=== PATIENT | female | born 1980 | race Caucasian/White ===

== ENCOUNTER 2017-12-28 09:00 | Inpatient (IN) | payer OTHER ==
[2017-12-28] MEDS ORDERED: ELECTROLYTE-148 SOLN 500 ML IV ONE (10:30)
[2017-12-28] MEDS ORDERED: ELECTROLYTE-148 SOLN 1,000 ML IV SCH ×3 (11:00→14:30)
[2017-12-28 11:10] VITALS: BMI 36.0
--- NOTE | 2017-12-28 11:24 | HP ---
Past Medical History - Primary Care Physician PCP:: Isrrael Tavares - Admission Chief Complaint: 37yo P1 with at EGA 39w 1d admitted for repeat section. History of Present Illness: AMA Prior C/S Vaginal GBS Negative. cf DNA screen ([id number]) suggest of 45X_, pt declined Amnio. History Source: Patient, Medical Record Limitations to Obtaining History: No Limitations - Past Medical History PROGRAM SUPPORT SPECIALIST: No: Alzheimer's, CVA, Dementia, Migraine, Multiple Sclerosis, Peripheral Neuropathy, Parkinson's, Seizure, Syncope, TIA, Vertigo, Other Cardiovascular: Yes: Other (Tachycardia- evaluated by profile mill operator tape control, no pathology found) Pulmonary: No: Asthma, Bronchitis, Cancer, COPD, O2 Dependent, Pneumonia, Previously Intubated, Pulmonary Embolus, Pulmonary Fibrosis, Sleep Apnea, Other Gastrointestinal: No: Ascites, Cancer, Constipation, Crohn's Disease, Diverticulitis, Diverticulosis, Esophageal Varices, Gastritis, GERD, GI Bleed, Hemorrhoids, Hiatal Hernia, Inflamatory Bowel Disease, Irritable Bowel Disease, Pancreatitis, Peptic Ulcer Disease, Ulcerative Colitis, Other Hepatobiliary: No: Cirrhosis, Cholelithiasis, Cholecystitis, Choledocholithiasis , Hepatitis A, Hepatitis B, Hepatitis C, Other Renal/: No: Renal Failure, Renal Inusuff, BPH, Cancer, Hematuria, Hemodialysis , Neurogenic Bladder, Renal Calculi, UTI, Other Reproductive: No: Ectopic , Endometriosis, Fibroids, PID, Polycystic Ovary Syndrome, Postmenopausal, Other ...: 2 ...Para: 1 ...Term: 1 ...LMP: 03/29/17 ... Weeks Gestation by Dates: 39.1 ...EDC by Dates: 01/03/18 ...EDC by Sono: 01/03/18 Heme/Onc: No: Anemia, B12 Deficiency, Bleeding Disorder, Cancer, Current Chemotherapy, Current Radiation Therapy, Hemochromatosis, Hypercoaguable State, Myeloproliferative Synd, Sickle Cell Disease, Sickle Cell Trait, Thrombocytopenia, Other Infectious Disease: No: AIDS, C-Diff, Herpes Zoster, HIV, MRSA, STD's, Tuberculosis, VREF, Other Psych: No: Addictions, Anxiety, Bipolar, Depression, Panic, Psychosis, Schizophrenia, Other Musculoskeletal: No: Bursitis, Chronic low back pain, Hemiparesis, Hemiplegia, Osteoarthritis, Paraplegia, Other Rheumatology: No: Fibromyalgia, Gout, Lupus, Rheumatoid Arthritis, Sarcoidosis, Vasculitis, Other ENT: No: Allergic Rhinitis, Sinusitis, Other Endocrine: No: Maries's Disease, Quinn's Disease, Diabetes Insipidus, Diabetes Mellitus, Hyperparathyroidism, Hyperthyroidism, Hypothyroidism, Osteopenia, SIADH, Other Dermatology: No: Basal Cell, Cellulitis, Eczema, Melanoma, Psoriasis, Squamous Cell, Other - Past Surgical History Past Surgical History: Yes: Appendectomy, Hx Myomectomy: No Hx Transabdominal Cerclage: No Additional Surgical History: Laparoscopy for endometriosis - Smoking History Smoking history: Never smoked Have you smoked in the past 12 months: No - Alcohol/Substance Use Hx Alcohol Use: No History of Substance Use: reports: None - Social History Usual Living Arrangement: Yes: With Spouse, With Child ADL: Independent Occupation: [employer] History of Recent Travel: No Home Medications - Allergies Allergies/Adverse Reactions: Allergies Allergy/AdvReac Type Severity Reaction Status Date / Time levofloxacin [From Levaquin] Allergy Rash Verified 12/28/17 10:14 - Home Medications Home Medications: Ambulatory Orders Pnv No.95/Ferrous Fum/Folic AC [ Vitamin Tablet] 1 each PO DAILY Family Disease History - Family Disease History Family Disease History: CA: Grandparent (Breast ca in her 70's), Other: Father ( HTN, CAD, [place] x 2, epilepsy, bladder ca) Review of Systems Findings/Remarks: Well - Review of Systems Constitutional: reports: No Symptoms Eyes: reports: No Symptoms HENT: reports: No Symptoms Neck: reports: No Symptoms Cardiovascular: reports: No Symptoms Respiratory: reports: No Symptoms Gastrointestinal: reports: No Symptoms Genitourinary: reports: No Symptoms Breasts: reports: No Symptoms Reported Musculoskeletal: reports: No Symptoms Integumentary: reports: No Symptoms Neurological: reports: No Symptoms Endocrine: reports: No Symptoms Hematology/Lymphatic: reports: No Symptoms Psychiatric: reports: No Symptoms Pain Intensity: 0 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 - Maternity Vital Signs: Vital Signs Temperature 98.3 F 12/28/17 09:00 Pulse Rate 129 H 12/28/17 09:00 Respiratory Rate 20 12/28/17 09:00 Blood Pressure 122/72 12/28/17 09:00 O2 Sat by Pulse Oximetry (%) Constitutional: Yes: Well Nourished, No Distress, Calm Eyes: Yes: WNL, Conjunctiva Clear, EOM Intact HENT: Yes: WNL, Atraumatic, Normocephalic Neck: Yes: WNL, Supple, Trachea Midline Cardiovascular: Yes: WNL, Regular Rate and Rhythm Lungs: Clear to auscultation, Normal air movement Breast(s): Yes: WNL - Abdominal Exam/OB Fundal Height: 38 Number of Fetuses: Single Presentation: Vertex Hemorrhage Risk Assessment - Risk Factors Medium Risk Factors: Yes: Prior , uterine surgery,or multiple laparotomies High Risk Factors: Yes: None Risk Score: 1 Risk Level: Medium Risk Imaging - Results Ultrasound: Report Reviewed Assessment/Plan 37yo P1 with at EGA 39w 1d admitted for repeat section. We discussed the risks and benefits of C/S at length, including but not limited to scarring, pain, bleeding, infection, injury to underlying organs and structures , need for additional surgery to repair/treat any problems or complications, complications/injuries, etc. The pt verbalized her understanding and requested to proceed with surgery. The pt is aware that all surgeries have risks and no guarantees can be provided
[2017-12-28] MEDS ORDERED: ONDANSETRON 4 MG/2 ML VIAL IVPUSH PRN (11:30)
[2017-12-28] MEDS ORDERED: CITRIC ACID/SODIUM CITRATE 30 ML UNIT-DOSE CUP PO ONE ×2 (11:45→14:30)
[2017-12-28] MEDS ORDERED: morphine SULFATE/Preservative Free 0.5 MG/ML (1cc Syringe) ONE (12:10)
[2017-12-28] MEDS ORDERED: OXYTOCIN 20 UNITS in 0.9% NS 20 UNIT/1,000 ML INFUS.BAG IV ONE (12:16)
[2017-12-28] MEDS ORDERED: OXYTOCIN 10 UNITS/ML VIAL ONE (12:17)
[2017-12-28] MEDS ORDERED: ePHEDrine SULFATE 50 MG/1 ML AMPULE ONE (12:36)
[2017-12-28] MEDS ORDERED: BENZOCAINE 20% 57 GM BOTTLE TP PRN (13:24)
[2017-12-28] MEDS ORDERED: oxyCODONE HCL 5 MG TABLET PO PRN ×2 (13:24)
[2017-12-28] MEDS ORDERED: WITCH HAZEL 50% (TUCKS) 40 PAD/JAR PAD TP PRN (13:24)
[2017-12-28] MEDS ORDERED: BENZOCAINE 28 GM HEMORRHOIDAL OINTMENT TP PRN (13:24)
[2017-12-28] MEDS ORDERED: METHYLERGONOVINE MALEATE 0.2 MG/1 ML AMP IM PRN (13:24)
[2017-12-28 13:35] LABS: VENOUS PC02 41.9 mmHg (38-52); VENOUS PH 7.35 (7.32-7.42)
[2017-12-28 13:36] LABS: ARTERIAL BLD GAS O2 SATURATION 8.4 % (90-98.9); ARTERIAL BLOOD GAS PCO2 62.1 mmHg (35-45); ARTERIAL BLOOD GAS PO2 11.8 mmHg (80-100); ARTERIAL BLOOD GAS pH 7.25 (7.35-7.45)
[2017-12-28] MEDS ORDERED: TUBERCULIN PPD 5 TU/0.1ML SYRINGE (IN PATIENT USE ONLY) ID ONE (14:00)
[2017-12-28] MEDS ORDERED: OXYTOCIN 20 UNITS in 0.9% NS 20 UNIT/1,000 ML INFUS.BAG IV SCH (14:30)
[2017-12-28] MEDS: IBUPROFEN 800 MG/8 ML IJ IVPB PRN (15:29)
--- NOTE | 2017-12-28 21:02 | OP ---
Operative Note - Note: Operative Date: 12/28/17 Pre-Operative Diagnosis: at EGA 39w1d. Prior C/S. Unstable lie Operation: Repeat LT C/S Findings: Live baby girl in transverse presentation with head on maternal left, no meconium, normal uterus, tubes, ovaries. 9/9 Post-Operative Diagnosis: Same as Pre-op Surgeon: Isrrael Tavares Forestry Aide: Jossie Torrez Anesthesiologist/CLINICAL EDUCATION SPECIALIST: Sindy Cruz Anesthesia: Spinal Specimens Removed: Placenta Estimated Blood Loss (mls): 700 Drains & Tubes with Location: Randall cath Drains, Volume Out (mls): 100 Blood Volume Replaced (mls): 0 Fluid Volume Replaced (mls): 1,500 Operative Report Dictated: Yes
--- NOTE | 2017-12-28 21:03 | PN ---
Delivery - Delivery Section: Repeat, Low Flap Transverse Type of Anesthesia: Spinal Episiotomy/Laceration: None EBL (cc): 700 Delivery, Single - Stages of Labor Date of Delivery: 12/28/17 Time of Delivery: 12:53 Date Placenta Delivered: 12/28/17 Time Placenta Delivered: 12:54 Placenta: Yes: Expressed, Manual Removal - Condition of Infant Machine Assistant/Derrick Hand Present: Yes Name: Ariane Jaquez Gender: Female Weight: 2.778 kg Total Hours ROM (Hrs/Mins): 3mins - 1 Minute Total Score: 9 5 Minutes Total Score: 9 - [place] Feeding Plan Initial Plan: Elected not to breastfeed exclusively throughout hospitalization Remarks - Remarks Remarks: Transverse presentation. Vacuum delivery of head.
--- NOTE | 2017-12-28 23:48 | OP ---
DATE OF OPERATION: 12/28/2017 PREOPERATIVE DIAGNOSIS: at estimated gestational age of 39 weeks and 1 day. Previous section. Unstable lie. POSTOPERATIVE DIAGNOSIS: at estimated gestational age of 39 weeks and 1 day. Previous section. Unstable lie. PROCEDURE: Repeat low transverse section via Pfannenstiel skin incision. SURGEON: Isrrael Tavares M.D. WOOD BORER: Jossie Torrez M.D. ANESTHESIOLOGIST: Sindy Cruz M.D. ANESTHESIA: Spinal. COMPLICATIONS: None. ESTIMATED BLOOD LOSS: 700 mL. URINE OUTPUT: 100 mL of clear urine at the end of the procedure. INTRAVENOUS FLUIDS: 1500 mL of crystalloid. PATHOLOGY: Placenta. FINDINGS: Normal uterus, fallopian tubes, and ovaries. Live baby girl in transverse lie with head on maternal left. No meconium in amniotic fluid. Apgars 9 and 9. Baby's weight is 2778 g. PROCEDURE: The patient was met preoperatively. Risks, benefits, and alternatives of surgery were discussed in detail. All questions were answered. The patient verbalized her understanding and requested to proceed with the surgery. The consent form was reviewed and signed. The patient was brought to the OR with the IV running. She was placed on the surgical table in a sitting position. The spinal anesthesia was achieved without difficulty. The patient was then placed in a supine position with leftward tilt. A Randall catheter was inserted sterilely and left to drain to gravity. The patient was then prepped and draped in the usual sterile fashion. A timeout procedure was conducted as per standard protocol. The surgeon then proceeded with the operation. The Pfannenstiel skin incision was made with the knife along the prior scar approximately 2 cm above the pubic symphysis. The incision was carried down to the level of fascia. The fascia was incised in the midline, and the incision was extended bilaterally with Adamson scissors. The fascia was then dissected away from the rectus muscles using sharp and blunt dissection. The rectus muscles were in the midline bluntly. The peritoneum was identified and entered sharply. The peritoneal incision was then extended superiorly and inferiorly. The bladder peritoneum was then dissected away from the lower uterine segment. The bladder peritoneum was dissected sharply and the bladder was reflected downwards. The uterus was incised transversely in the lower uterine segment. The incision was extended bilaterally using bandage scissors. The baby was noted to be in transverse lie with the fetus head positioned on maternal left. The baby was manually converted to vertex presentation; however, the head was not engaged and not flexed, therefore the decision was made to proceed with vacuum application. The vacuum was applied to the head. The proper position was confirmed. The appropriate vacuum was then created, and the baby was easily delivered from the uterine incision. At that point the vacuum was disengaged, and the baby shoulders and body were delivered without complications. The baby was crying spontaneously and was handed to the waiting scrap cutter. The placenta was then delivered manually and without complications. The uterus was cleared of all clots and debris using moist laparotomy laps. The uterine incision was repaired using 0 Biosyn suture in a running, locking stitch. The uterine incision was then imbricated using a secondary layer of closure with 0 Biosyn suture. The bladder peritoneum was also approximated using a 2-0 chromic suture. The operative site was irrigated using copious amounts of normal saline. The abdominal peritoneum was reapproximated using a 2-0 chromic suture. The rectus muscles were approximated using several interrupted 2-0 chromic sutures. The fascia was closed using a 0 Vicryl suture in a running stitch. Good hemostasis and approximation were confirmed. The subcutaneous adipose tissues were approximated using several interrupted 2-0 Vicryl sutures. The skin was closed with a subcutaneous stitch using 4-0 Vicryl suture. Sponge, lap, and instrument counts were correct. Patient tolerated procedure well and she was transferred to recovery room in stable condition. Vance [id number]
[2017-12-29] MEDS: IBUPROFEN 800 MG/8 ML IJ IVPB PRN (06:41)
[2017-12-29 07:56] LABS: BASO % 0.3 % (0-2.0); EOS % 0.4 % (0-4.5); HEMATOCRIT 34.5 % (32.4-45.2); HEMOGLOBIN 11.3 GM/dL (10.7-15.3); MCH 27.5 pg (25.7-33.7); MCHC 32.8 g/dl (32.0-36.0); MEAN CELL VOLUME 83.9 fl (80-96); MEAN PLT VOLUME 8.7 fl (7.5-11.1); MONO % 6.2 % (3.8-10.2); NEUT % 81.1 % (42.8-82.8); PLATELET COUNT 202 K/MM3 (134-434); RBC 4.12 M/mm3 (3.60-5.2); RDW 15.6 % (11.6-15.6); WHITE BLOOD COUNT 11.7 K/mm3 (4.0-10.0)
--- NOTE | 2017-12-29 08:45 | PN ---
Post Progress Note Post Day: 1 Type of Delivery: Repeat C/S Vital Signs: Vital Signs Temperature 98.4 F 12/29/17 06:00 Pulse Rate 91 H 12/29/17 06:00 Respiratory Rate 20 12/29/17 06:00 Blood Pressure 103/67 12/29/17 06:00 O2 Sat by Pulse Oximetry (%) 100 12/28/17 14:40
[2017-12-29] MEDS: ENOXAPARIN NA (PORCINE) 40 MG/0.4 ML DISP.SYRIN SQ SCH (10:59)
[2017-12-29] MEDS: IBUPROFEN 600 MG TABLET (FP) PO PRN ×2 (13:12→20:47)
[2017-12-29] MEDS: SIMETHICONE 80 MG TAB.CHEW (FP) PO PRN ×2 (13:13→20:47)
[2017-12-29] MEDS: ACETAMINOPHEN 325 MG TABLET (FP) PO PRN ×2 (13:13→20:47)
[2017-12-29] MEDS ORDERED: BISACODYL 10 MG SUPP.RECT RC PRN (13:24)
--- NOTE | 2017-12-29 15:59 | PN ---
Progress Note (short form) - Note Progress Note: Anesthesia postop note 37y/o F s/p spinal anesthesia for section, duramorph for postop pain management. POD#1, vss, aaox3, pain well controlled, no complaints, sensory motor intact distally. No anesthesia complications.
[2017-12-30] MEDS: SENNOSIDES/DOCUSATE COMBO (SENNA PLUS) TABLET (UD) PO PRN ×2 (00:52→21:30)
[2017-12-30] MEDS: IBUPROFEN 600 MG TABLET (FP) PO PRN ×6 (00:53→21:30)
[2017-12-30] MEDS: ACETAMINOPHEN 325 MG TABLET (FP) PO PRN ×6 (00:53→21:30)
[2017-12-30] MEDS: SIMETHICONE 80 MG TAB.CHEW (FP) PO PRN ×3 (00:53→21:30)
--- NOTE | 2017-12-30 08:15 | PN ---
Post Progress Note - Subjective Subjective: No complaints Post Day: 2 Type of Delivery: Repeat C/S Vital Signs: Vital Signs Temperature 97.7 F 12/29/17 21:00 Pulse Rate 103 H 12/29/17 21:00 Respiratory Rate 20 12/29/17 21:00 Blood Pressure 116/72 12/29/17 21:00 O2 Sat by Pulse Oximetry (%) 100 12/28/17 14:40 Breast Exam: Yes: Soft Uterus: Yes: Fundus Firm, Fundus below umbilicus, Non-tender Incision: Yes: Sutures intact Abdomen/GI: Yes: Abdomen soft, Passing flatus, Tolerating PO Lochia: Yes: Rubra Lochia, amount: Small Extremities: Yes: Calves non-tender, Edema Perineum: Yes: Intact Activity: Ambulating - Labs Labs: CBC WBC 11.7 K/mm3 (4.0-10.0) H 12/29/17 06:30 RBC 4.12 M/mm3 (3.60-5.2) 12/29/17 06:30 Hgb 11.3 GM/dL (10.7-15.3) 12/29/17 06:30 Hct 34.5 % (32.4-45.2) 12/29/17 06:30 MCV 83.9 fl (80-96) 12/29/17 06:30 MCH 27.5 pg (25.7-33.7) 12/29/17 06:30 MCHC 32.8 g/dl (32.0-36.0) 12/29/17 06:30 RDW 15.6 % (11.6-15.6) 12/29/17 06:30 Plt Count 202 K/MM3 (134-434) 12/29/17 06:30 MPV 8.7 fl (7.5-11.1) 12/29/17 06:30 Absolute Neuts (auto) 9.5 K/mm3 (1.5-8.0) H 12/29/17 06:30 Neutrophils % 81.1 % (42.8-82.8) 12/29/17 06:30 Lymphocytes % 12.0 % (8-40) D 12/29/17 06:30 Monocytes % 6.2 % (3.8-10.2) 12/29/17 06:30 Eosinophils % 0.4 % (0-4.5) 12/29/17 06:30 Basophils % 0.3 % (0-2.0) 12/29/17 06:30 Nucleated RBC % 0 % (0-0) 12/29/17 06:30 Assessment/Plan 37yo P2 s/p repeat LT C/S, doing well stable, afebrile. care instructions reviewed. Continue routine postop care. Ambulation encouraged.
--- NOTE | 2017-12-30 08:22 | DS ---
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 Vital Signs: Vital Signs Temperature 97.7 F 12/29/17 21:00 Pulse Rate 103 H 12/29/17 21:00 Respiratory Rate 20 12/29/17 21:00 Blood Pressure 116/72 12/29/17 21:00 O2 Sat by Pulse Oximetry (%) 100 12/28/17 14:40 Constitutional: Yes: Well Nourished, No Distress, Calm Eyes: Yes: WNL, Conjunctiva Clear HENT: Yes: WNL, Atraumatic, Normocephalic Neck: Yes: WNL, Supple, Trachea Midline Cardiovascular: Yes: WNL, Regular Rate and Rhythm Respiratory: Yes: WNL, Regular, CTA Bilaterally Gastrointestinal: Yes: WNL, Normal Bowel Sounds, Soft ...Rectal Exam: Yes: Deferred Renal/: Yes: WNL Pelvis: Yes: WNL External Genitalia: Yes: Normal ....Post : Yes: Uterus firm, Uterus non-tender, Slight lochia rubra Breast(s): Yes: WNL Musculoskeletal: Yes: WNL Extremities: Yes: WNL Edema: Yes Edema: LLE: Trace, RLE: Trace Integumentary: Yes: WNL Wound/Incision: Yes: Clean/Dry, Well Approximated, Sutures Intact, Steri Strips , Open to air Neurological: Yes: WNL, Alert, Oriented ...Motor Strength: WNL Psychiatric: Yes: WNL, Alert, Oriented Labs: CBC, BMP 12/29/17 06:30 Delivery - Delivery Section: Repeat, Low Flap Transverse Type of Anesthesia: Spinal Episiotomy/Laceration: None EBL (cc): 700 Delivery, Single - Stages of Labor Date of Delivery: 12/28/17 Time of Delivery: 12:53 Date Placenta Delivered: 12/28/17 Time Placenta Delivered: 12:54 Placenta: Yes: Expressed, Manual Removal - Condition of Infant Household Appliance Installer/Staff Air Tactical Officer Present: Yes Name: Ariane Jaquez Infant Gender: Female Weight: 2.778 kg Total Hours ROM (Hrs/Mins): 3mins - 1 Minute Total Score: 9 5 Minutes Total Score: 9 - [place] Feeding Plan Initial Plan: Elected not to breastfeed exclusively throughout hospitalization Discharge Summary Reason For Visit: at 39w1d with prior C/S Procedures: Principal: Repeat LT C/S Hospital Course: Normal recovery Condition: Good - Instructions Diet, Activity, Other Instructions: Physical activity Resume your normal everyday activity as tolerated no heavy lifting or exercise until seen by your surgeon. You may walk unlimited toro of and climb stairs. You may resume driving the car when you feel safe and comfortable behind the wheel. No sexual activity as instructed. Wound care If you have a bandage, leave it on, and keep dry for 48-72 hours. After that time discard the outer bandage. If they are tapes on the skin under the out of bandage leave them in place. They will peel off in the next 7 to 10 days. Do Not Peel them off. You may shower the day after surgery. If there are tapes present on the skin, you may shower over them. Diet There are no dietary restrictions. Eat healthy, high-fiber foods. Drink 6 to 8 glasses of liquid each day. This will assist in keeping your bowels are regular. Pain management You may take Tylenol or acetaminophen or Ibuprofen (for example, Motrin, Advil etc.) from my pain prescription medication is ordered should be taken as prescribed for moderate to severe pain. Call MD for any of the following: Severe pain not relieved by medication Fever of 101 or higher Excessive bleeding or drainage on dressing Inability to urinate Referrals: Isrrael Tavares MD [Staff Physician] - Disposition: HOME - Home Medications Comprehensive Discharge Medication List: Ambulatory Orders Pnv No.95/Ferrous Fum/Folic AC [ Vitamin Tablet] 1 each PO DAILY
[2017-12-30] MEDS: ENOXAPARIN NA (PORCINE) 40 MG/0.4 ML DISP.SYRIN SQ SCH (09:30)
[2017-12-31] MEDS: IBUPROFEN 600 MG TABLET (FP) PO PRN ×2 (05:53→10:02)
[2017-12-31] MEDS: SIMETHICONE 80 MG TAB.CHEW (FP) PO PRN ×2 (05:53→10:03)
[2017-12-31] MEDS: ACETAMINOPHEN 325 MG TABLET (FP) PO PRN ×2 (05:54→10:01)
[2017-12-31 08:14] LABS: BASO % 0.5 % (0-2.0); EOS % 1.5 % (0-4.5); HEMATOCRIT 31.5 % (32.4-45.2); HEMOGLOBIN 10.5 GM/dL (10.7-15.3); LYMPH % 20.6 % (8-40); MCH 28.2 pg (25.7-33.7); MCHC 33.5 g/dl (32.0-36.0); MEAN CELL VOLUME 84.2 fl (80-96); MEAN PLT VOLUME 8.5 fl (7.5-11.1); MONO % 5.4 % (3.8-10.2); PLATELET COUNT 219 K/MM3 (134-434); RBC 3.74 M/mm3 (3.60-5.2); RDW 15.6 % (11.6-15.6); WHITE BLOOD COUNT 8.3 K/mm3 (4.0-10.0)
[2017-12-31] MEDS: ENOXAPARIN NA (PORCINE) 40 MG/0.4 ML DISP.SYRIN SQ SCH (09:48)
[2017-12-31 10:36] VITALS: BP 131/65; PULSE 104; TEMP 97.9
--- NOTE | 2018-01-01 18:04 | PATH ---
Surgical Pathology Report Patient Name: MARZENA JACKSON Med. Rec. 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 Specimen(s) Received PLACENTA Clinical History , 39 weeks Tachycardia -- being followed by Dr. 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 Electronically Signed Dotty Parra M.D. Gross Description The specimen is received fresh labeled placenta and is a 310 gram, 13.5 x 13.0 x 2.6 cm. placenta with attached membranes and umbilical cord. The attached membranes are londono, cloudy and insert marginally. The umbilical cord measures 13 cm. in length and averages 1 cm. in diameter. The cord inserts eccentrically, 4.5 cm. to the nearest margin. No true knots or strictures are identified. Cut surface of the umbilical cord reveals 3 vessels. The surface is garcia-blue with minimal fibrin deposition and appropriate caliber vessels. The maternal surface is red-brown with focal defects. Sectioning reveals red-brown, spongy parenchyma. No lesions are identified. Social Sciences Lecturer sections are submitted in three cassettes as follows: 1- membrane rolls and umbilical cord; 2-3- full thickness sections of placenta. 12/31/2017 [facility]2017
== END 2017-12-31 13:20 | disposition home or self-care (01) | DRG 788 ==
LOC: JLDR 09:00 → J3W 15:10
PROVIDERS: ADMIT Obstetrics & Gynecology; ATTEND Obstetrics & Gynecology
PROC: 10D00Z1 Extraction of Products of Conception, Low, Open Approach (ICD-10-PCS; principal; 2017-12-28)
DX: O34.219 Maternal care for unspecified type scar from previous cesarean delivery (principal); O32.0XX1 Maternal care for unstable lie, fetus 1; Z3A.39 39 weeks gestation of pregnancy; Z37.0 Single live birth
CPT/HCPCS: 36415; 36600; 82803; 85025; 88307-TC